=== PATIENT | female | born 1950 | race Caucasian/White ===

== ENCOUNTER → 2018-10-03 | Day surgery (SDC) | payer MEDICARE, OTHER ==
[~2018-10-03] MED LIST: ACETAMINOPHEN 325 MG TABLET PO PRN; ALBU2.5V5 NEB; ALBU2.5V8 IH; ALBUTEROL SULFATE 2.5 MG/3 ML NEBU. NEB ONE; ALBUTEROL SULFATE 2.5 MG/3 ML NEBU. NEB PRN; ASPI81TA50 PO; BUPR150T11 PO; BUTA1CAP57 PO; CARV3.1230 PO; CHOL10003 PO; CLON0.5T11 PO; DULO60CA6 PO; FAMOTIDINE 20 MG/2 ML VIAL IVP ONE; FERR325T14 PO; FEXO180T16 PO; FLUT1DIS3 IH; FURO-68 PO; GABA-587 PO; GLIP5TAB22 PO; IBUP200T44 PO; IPRATRPIUM/ALBUTEROL 0.5/2.5MG 3 ML NEBU. NEB PRN; IV RINGERS SOLUTION,LACTATED 1,000 ML IV SCH; LIDOCAINE 2% PF Vial for OR 5 ML VIAL. ONE; LOPE2CAP PO; METF10007 PO; MONT10TA9 PO; MULT1TAB77 PO; ONDANSETRON PF 4 MG/2 ML VIAL. IV PRN; OXYC5TAB4 PO; PANT40TA5 PO; POTA10TA10 PO; PROPOFOL 40 ML IV ONE; RACEPINEPHRINE 2.25% 0.5 ML NEBU. NEB PRN; SIME80TA14 PO; SIMV10TA3 PO; TELM80TA PO; TOLT2CAP PO; TOPI100T8 PO; TOPI50TA8 PO; UMEC62.5 IH; hydrALAZINE 20 MG/ML VIAL. IV PRN
[2018-10-03 11:10] VITALS: BP 131/74
== END | disposition home or self-care (01) ==
LOC: SURG 08:22
PROVIDERS: ATTEND Internal Medicine Gastroenterology
DX: Z12.11 Encounter for screening for malignant neoplasm of colon (principal); D12.2 Benign neoplasm of ascending colon; K57.30 Diverticulosis of large intestine without perforation or abscess without bleeding; F41.9 Anxiety disorder, unspecified; Z86.010 Personal history of colon polyps; Z90.49 Acquired absence of other specified parts of digestive tract; K21.9 Gastro-esophageal reflux disease without esophagitis; J44.9 Chronic obstructive pulmonary disease, unspecified; M19.90 Unspecified osteoarthritis, unspecified site; E11.9 Type 2 diabetes mellitus without complications; Z98.890 Other specified postprocedural states; Z88.0 Allergy status to penicillin; Z88.2 Allergy status to sulfonamides; Z88.1 Allergy status to other antibiotic agents; Z88.8 Allergy status to other drugs, medicaments and biological substances; Z72.89 Other problems related to lifestyle; G43.909 Migraine, unspecified, not intractable, without status migrainosus; F32.9 Major depressive disorder, single episode, unspecified; I10 Essential (primary) hypertension; Z79.84 Long term (current) use of oral hypoglycemic drugs; Z79.899 Other long term (current) drug therapy; Z89.512 Acquired absence of left leg below knee
CPT/HCPCS: 45385; 82947; J2704; J3490; J7120; J7613; G0105; J2001